=== PATIENT | female | born 1960 | race Two or more races ===

== ENCOUNTER 2023-02-24 13:29 | Emergency (ER) | payer OTHER ==
[~2023-02-24] VITALS: Ht 160 cm; Wt 70.5 kg
[2023-02-24] MEDS ORDERED: VALS40TA11 PO (13:40)
[2023-02-24] MEDS ORDERED: ALBU18HF12 IH (13:40)
[2023-02-24] MEDS ORDERED: AMLO10TA55 PO (13:40)
[2023-02-24] MEDS ORDERED: BECL10.62 IH (13:40)
[2023-02-24] MEDS ORDERED: HYDR12.54 PO (13:43)
[2023-02-24 14:30] VITALS: BP 121/76
== END 2023-02-24 15:17 | disposition home or self-care (01) ==
LOC: EMS 13:35
DX: S80.11XA Contusion of right lower leg, initial encounter (principal); I10 Essential (primary) hypertension; F17.210 Nicotine dependence, cigarettes, uncomplicated; Z88.0 Allergy status to penicillin; W19.XXXA Unspecified fall, initial encounter; Y93.89 Activity, other specified; Y92.89 Other specified places as the place of occurrence of the external cause; Y99.8 Other external cause status
CPT/HCPCS: 99283

== ENCOUNTER 2023-04-28 18:52 | Emergency (ER) | payer OTHER ==
[~2023-04-28] VITALS: Ht 157.5 cm; Wt 68.2 kg
[~2023-04-28 18:52] MED LIST: ALBU18HF12 IH; AMLO10TA55 PO; BECL10.62 IH; HYDR12.54 PO; VALS40TA11 PO
[2023-04-28] MEDS ORDERED: IBUPROFEN 600 MG TABLET PO ONE (20:00)
[2023-04-28] MEDS ORDERED: TRAM-559 PO (22:27)
[2023-04-28 22:57] VITALS: BP 135/75; PULSE 70; RESP 18; TEMP 97.3
== END 2023-04-28 23:28 | disposition home or self-care (01) ==
LOC: EMS 18:55
DX: S93.402A Sprain of unspecified ligament of left ankle, initial encounter (principal); I10 Essential (primary) hypertension; F17.210 Nicotine dependence, cigarettes, uncomplicated; Z88.0 Allergy status to penicillin; W10.1XXA Fall (on)(from) sidewalk curb, initial encounter; Y93.89 Activity, other specified; Y92.89 Other specified places as the place of occurrence of the external cause; Y99.8 Other external cause status
CPT/HCPCS: 99284

== ENCOUNTER 2024-12-14 04:32 | Emergency (ER) | payer OTHER ==
[~2024-12-14] VITALS: Ht 157.5 cm; Wt 59.1 kg
[~2024-12-14 04:32] MED LIST changes: +TRAM50TA5 PO
[2024-12-14 05:04] VITALS: BP 124/73; PULSE 101; RESP 18; TEMP 98.1; O2SAT 98
[2024-12-14] MEDS ORDERED: GUAIFDM PO (07:03)
[2024-12-14] MEDS ORDERED: IBUP-1554 PO (07:03)
[2024-12-14] MEDS ORDERED: POLY119P3 PO (07:03)
[2024-12-14] MEDS ORDERED: HYDR-4062 PO (07:03)
[2024-12-14] MEDS ORDERED: OSEL75CA45 PO (07:05)
== END 2024-12-14 05:04 | disposition left against medical advice (07) ==
LOC: EMS 04:42
DX: Z53.21 Procedure and treatment not carried out due to patient leaving prior to being seen by health care provider (principal)

== ENCOUNTER 2024-12-14 05:11 | Emergency (ER) | payer OTHER ==
[~2024-12-14] VITALS: Ht 157.5 cm; Wt 59.1 kg
[2024-12-14 05:36] LABS: COVID AG,FIA SOURCE NASAL SWAB
[2024-12-14 06:39] LABS: SARS-COV2 (COVID) ANTIGEN,FIA Negative (Negative)
[2024-12-14 06:40] LABS: INFLUENZA TYPE A NEGATIVE FOR TYPE A (NEGATIVE)
[2024-12-14 06:45] LABS: INFLUENZA TYPE B POSITIVE FOR TYPE B (NEGATIVE)
[2024-12-14] MEDS: HYDROCODONE/ACETAMINOPHEN 5-325 MG TABLET PO ONE (06:52)
[2024-12-14] MEDS: GuaiFENesin/D-METHORPHAN [SUGAR-FREE] 200-20MG/10 ML SYRUP UDCUP PO ONE (06:55)
[2024-12-14] MEDS: IBUPROFEN 600 MG TABLET PO ONE (06:55)
[2024-12-14 07:00] VITALS: BP 135/81; PULSE 98; RESP 18; TEMP 99.1; O2SAT 97
[2024-12-14] MEDS ORDERED: GUAIFDM PO (07:03)
[2024-12-14] MEDS ORDERED: HYDR-4062 PO (07:03)
[2024-12-14] MEDS ORDERED: POLY119P3 PO (07:03)
[2024-12-14] MEDS ORDERED: IBUP-1554 PO (07:03)
[2024-12-14] MEDS ORDERED: OSEL75CA45 PO (07:05)
== END 2024-12-14 18:49 | disposition home or self-care (01) ==
LOC: EMS 05:12
DX: J20.9 Acute bronchitis, unspecified (principal); J10.1 Influenza due to other identified influenza virus with other respiratory manifestations; R51.9 Headache, unspecified; I10 Essential (primary) hypertension; F17.210 Nicotine dependence, cigarettes, uncomplicated; Z79.51 Long term (current) use of inhaled steroids; Z79.899 Other long term (current) drug therapy; Z88.0 Allergy status to penicillin; Z20.822 Contact with and (suspected) exposure to COVID-19
CPT/HCPCS: 71045; 87804; 99284